=== PATIENT | female | born 1950 | race Hispanic/Latino ===

== ENCOUNTER 2024-11-27 05:51 | Day surgery (SDC) | payer MEDICARE ==
[~2024-11-27] VITALS: Ht 154.9 cm; Wt 114.3 kg
[2024-11-27] VITALS (11 sets, daily range): BP systolic 119–156; BP diastolic 63–75; PULSE 72–79; RESP 14–18; TEMP 97.3–97.6
[2024-11-27] MEDS: 0.9%NACL 1000ML 1,000 ML IV ONE (06:28)
== END 2024-11-27 11:29 | disposition home or self-care (01) ==
LOC: ENDO 05:51 → DAH 05:51 → ENDO 11:29
PROVIDERS: ATTEND Internal Medicine Gastroenterology
DX: R93.2 Abnormal findings on diagnostic imaging of liver and biliary tract (principal); E11.9 Type 2 diabetes mellitus without complications; I10 Essential (primary) hypertension; Z90.49 Acquired absence of other specified parts of digestive tract; Z90.710 Acquired absence of both cervix and uterus; Z79.899 Other long term (current) drug therapy; E66.01 Morbid (severe) obesity due to excess calories; K80.50 Calculus of bile duct without cholangitis or cholecystitis without obstruction; Z68.42 Body mass index [BMI] 45.0-49.9, adult; K21.9 Gastro-esophageal reflux disease without esophagitis; Z88.8 Allergy status to other drugs, medicaments and biological substances
CPT/HCPCS: 43259; 82948 ×2; J7030; J2704 ×2; A4215; A4223; A4222; A4221; A4663; A4606; J3490